=== PATIENT | female | born 1960 | race Caucasian/White ===

== ENCOUNTER 2020-11-06 08:32 | Outpatient (REF) | payer OTHER, SELFPAY ==
--- NOTE | 2020-11-06 08:36 | MM_ITS ---
EXAMINATION: MM SCREENING DIGITAL BREAST TOMOSYNTHESIS, BILATERAL CLINICAL INFORMATION: Screening. Asymptomatic. The lifetime risk of breast cancer based on the Tyrer-Cuzick Model is 8%. COMPARISON: Mammography: 11/01/2019, 08/31/2018, 08/09/2017 TECHNIQUE: Digital breast tomosynthesis is performed in both the craniocaudal and mediolateral oblique views along with computer-aided detection (CAD). Synthesized 2D images are generated from the tomosynthesis. FINDINGS: There are scattered areas of fibroglandular density (ACR BI-RADS breast composition Category b). There are no significant masses, abnormal calcifications, or other abnormalities. There are some benign coarse calcifications central left breast. The axilla and skin contours are unremarkable. MM/MM tomosynthesis screening BI IMPRESSION: No mammographic evidence of malignancy. ASSESSMENT: BI-RADS 2: Benign RECOMMENDATION: Routine annual mammography screening. This patient's information was entered into a reminder system with a target due date for their next mammogram.
== END 2020-11-06 08:33 | disposition home or self-care (01) ==
LOC: HO.MAMMO 08:32
PROVIDERS: Visit Provider Family Medicine
DX: Z12.31 Encounter for screening mammogram for malignant neoplasm of breast (principal)
CPT/HCPCS: 77063; 77067

== ENCOUNTER 2021-08-08 09:47 | Outpatient (REF) | payer OTHER, SELFPAY ==
[2021-08-08 11:06] LABS: Appearance Urine CLEAR; Color Urine YELLOW; Glucose Urine UA NEG (NEG); Leukocyte Esterase Urine NEG (NEG); Nitrite Urine NEG (NEG); UACC Culture Trigger NO; Urine Blood 2+ (NEG); Urine Ketones NEG (NEG); Urine Protein NEG (NEG-TRACE)
[2021-08-08 11:28] LABS: Squamous Epithelial Cell Urine 2+ /LPF; WBC Urine 0 /HPF (0-4)
== END 2021-08-08 09:48 | disposition home or self-care (01) ==
LOC: HO.LAB 09:47
PROVIDERS: PCP Family Medicine; Visit Provider Family Medicine
DX: R35.0 Frequency of micturition (principal)
CPT/HCPCS: 81001

== ENCOUNTER 2021-12-24 08:01 | Outpatient (REF) | payer OTHER, SELFPAY ==
--- NOTE | ~2021-12-24 | MM_ITS ---
EXAMINATION: MM SCREENING DIGITAL BREAST TOMOSYNTHESIS, BILATERAL CLINICAL INFORMATION: Screening. Asymptomatic. The lifetime risk of breast cancer based on the Tyrer-Cuzick Model is 7%. COMPARISON: Mammography: 11/06/2020, 11/01/2019, 08/31/2018 TECHNIQUE: Digital breast tomosynthesis is performed in both the craniocaudal and mediolateral oblique views along with computer-aided detection (CAD). Synthesized 2D images are generated from the tomosynthesis. Additional right MLO view is provided. FINDINGS: There are scattered areas of fibroglandular density (ACR BI-RADS breast composition Category b). There are no significant masses, abnormal calcifications, or other abnormalities. Parenchymal pattern is similar to prior studies. There is no developing density or architectural abnormality. The axilla and skin contours are unremarkable. No significant changes. MM/MM tomosynthesis screening BI IMPRESSION: No mammographic evidence of malignancy. ASSESSMENT: BI-RADS 1: Negative RECOMMENDATION: Routine annual mammography screening. This patient's information was entered into a reminder system with a target due date for their next mammogram.
== END 2021-12-24 08:02 | disposition home or self-care (01) ==
LOC: HO.MAMMO 08:01
PROVIDERS: Visit Provider Family Medicine
DX: Z12.31 Encounter for screening mammogram for malignant neoplasm of breast (principal)
CPT/HCPCS: 77063; 77067

== ENCOUNTER 2023-01-06 08:16 | Outpatient (REF) | payer OTHER, SELFPAY ==
--- NOTE | ~2023-01-06 | MM_ITS ---
EXAMINATION: MM SCREENING DIGITAL BREAST TOMOSYNTHESIS, BILATERAL CLINICAL INFORMATION: Screening. Asymptomatic. The lifetime risk of breast cancer based on the Tyrer-Cuzick Model is 6%. COMPARISON: Mammography: 12/24/2021, 11/06/2020, 11/01/2019 TECHNIQUE: Digital breast tomosynthesis is performed in both the craniocaudal and mediolateral oblique views along with computer-aided detection (CAD). Synthesized 2D images are generated from the tomosynthesis. Additional right MLO view is provided. FINDINGS: There are scattered areas of fibroglandular density (ACR BI-RADS breast composition Category b). There are no significant masses, abnormal calcifications, or other abnormalities. No architectural abnormality or developing density or significant change from prior studies. MM/MM tomosynthesis screening BI IMPRESSION: No mammographic evidence of malignancy. ASSESSMENT: BI-RADS 1: Negative RECOMMENDATION: Routine annual mammography screening. This patient's information was entered into a reminder system with a target due date for their next mammogram.
== END 2023-01-06 08:17 | disposition home or self-care (01) ==
LOC: HO.MAMMO 08:16
PROVIDERS: Visit Provider Family Medicine
DX: Z12.31 Encounter for screening mammogram for malignant neoplasm of breast (principal)
CPT/HCPCS: 77063; 77067

== ENCOUNTER 2024-01-12 08:47 | Outpatient (REF) | payer OTHER, SELFPAY | END 2024-01-12 08:48 | disposition home or self-care (01) | LOC: HO.MAMMO 08:47 | PROVIDERS: Visit Provider Family Medicine | DX: Z12.31 Encounter for screening mammogram for malignant neoplasm of breast (principal) | CPT/HCPCS: 77063; 77067 ==

== ENCOUNTER → 2024-01-12 09:00 | Outpatient (BNV) | payer OTHER, SELFPAY | PROVIDERS: Visit Provider Radiology Diagnostic Radiology | DX: Z12.31 Encounter for screening mammogram for malignant neoplasm of breast (principal) | CPT/HCPCS: 77063; 77067 ==

== ENCOUNTER 2024-08-23 07:11 | Outpatient (REF) | payer OTHER, SELFPAY ==
[2024-08-23 07:33] LABS: MANUAL DIFF FLAG NO
[2024-08-23 07:52] LABS: Basophils Absolute Auto 0.1 X10*3/uL (0.0-0.2); Basophils Percent Auto 1.1 % (0-2); Eosinophils Absolute Auto 0.2 X10*3/uL (0.0-0.4); Eosinophils Percent Auto 4.4 % (0-4); Hemoglobin 15.2 g/dl (12.0-16.0); Imm Gran Abs Auto 0.02 X10*3/uL (0.00-0.03); Imm Gran Pct Auto 0.4 % (0.0-0.4); Lymphocytes Absolute Auto 1.8 X10*3/uL (1.2-4.9); Lymphocytes Percent Auto 33.1 % (20-40); Mean Corpuscular HGB Conc 34.5 g/dl (31.0-35.0); Mean Corpuscular Hemoglobin 32.2 pg (27.0-33.0); Mean Corpuscular Volume 93.2 fL (80.0-98.0); Mean Platelet Volume 8.9 fL (9.4-12.3); Monocytes Absolute Auto 0.6 X10*3/uL (0.1-1.2); Neutrophils Absolute Auto 2.8 x10*3/uL (2.0-8.3); Platelet Count 276 X10*3/uL (160-400); Red Blood Count 4.72 X10*6/uL (4.20-5.50); White Blood Count 5.5 X10*3/uL (4.8-10.8)
[2024-08-23 08:15] LABS: Alanine Aminotransferase 23 U/L (0-31); Albumin Level 4.2 g/dL (3.5-5.0); Alkaline Phosphatase 60 U/L (39-117); Anion Gap 11 (12-20); Aspartate Amino Transferase 24 U/L (5-31); Bilirubin Total 0.5 mg/dL (0.0-1.0); Blood Urea Nitrogen 19 mg/dL (9-16); Calcium 9.4 mg/dL (8.4-10.2); Carbon Dioxide 28 mmol/L (22-29); Chloride 106 mmol/L (96-108); Cholesterol 197 mg/dL (<200); Estimated Glomerular Filt Rate > 60; Glucose Random 92 mg/dL (60-115); HDL Cholesterol 66 mg/dL (>40); LDL Cholesterol Calculated 118 mg/dL (<100); Potassium 4.5 mmol/L (3.3-5.1); Sodium 140 mmol/L (135-145); Total Protein 6.5 g/dL (6.5-8.0); Triglycerides 66 mg/dL (<150)
== END 2024-08-23 07:12 | disposition home or self-care (01) ==
LOC: HO.LAB 07:11
PROVIDERS: PCP Family Medicine; Visit Provider Family Medicine
DX: E78.00 Pure hypercholesterolemia, unspecified (principal)
CPT/HCPCS: 36415; 80053; 80061; 85025

== ENCOUNTER 2025-04-10 11:44 | Outpatient (REF) | payer OTHER, SELFPAY ==
--- OUTSIDE RECORDS SUMMARY | 2025-04-10 12:41 | XMS_ITS | Patient Health Record ---
[facility] Address [address] [place] [address] Care Team Providers Care Gear Hobber Set Up Operator Name Role Phone Alverto Kennedy MD Primary Care Provider Alton Daniels Unavailable [phone] Allergies No Known Allergies Reason For Referral No Information Medications Medication SIG (Take, Route, Frequency, Duration) Notes Start Date End Date Status Metoprolol Tartrate 50 MG 1 tablet with food Orally Twice a day for 30 day(s) Active Simvastatin 20 MG 1 tablet every eveni ng Orally Once a day for 30 day(s) Active Levothyroxine-Liothyronin e Active Lovastatin 20 MG 1 tablet with the evening meal Orally Once a day for 30 day(s) Active Cephalexin 500 MG 1 tablet Orally Twic e a day for 10 day(s) Not-Taking Immunizations Vaccine Route Administration Date Status Comme nts COVID-19 Moderna Vaccine Unknown 09/12/2021 Administered 1st 11/03/2020 2nd 12/01/2020 Social History Tobacco Use: Social History Observation Description Date Details (start date - stop date) Current Smoker NA - NA Tobacco Use/Smoking Question Answer Notes Are you a: current smoker Alcohol Screen Question Answer Notes Did you have a drink containing alcohol in the p ast year? Yes Points 0 Interpretation Negative Tobacco use other than smoking: Question Answer Notes Are you an other tobacco user? No Plan Of Treatment Pending Test Test Name Order Date [id number] Destruction, 1-14 03/13/2014 31068-Vxprljko Plate 10/13/2011 33626-Ntgxxtvz Plate 03/13/2014 15178-Bhlhbsdh Plate 05/05/2022 61535-Rhpgjkaq Plate 01/01/2024 86378-Lwuymvmg Plate Each Additional 79341-Kyajjmax Plate Each Additional 61130 I&D ABSCESS- SIMPLE,SINGLE 021 Insurance Providers Payer Name Payer Address Payer Phone Subscriber Number Group Number Insured Name Patient Relationship to Insured Coverage Start Date Coverage End Date [facility] [address] [place] [address] [id number] Lashonda Jaffe Self - patient is the insured Medical (General) History Medical History History ICD Code mumps measles chicken pox thyroid disorder stroke headaches/migraines broken bones Cholesterol Surgical History Surgery Date(Month/Year)
== END 2025-04-10 11:45 | disposition home or self-care (01) ==
LOC: HO.MAMMO 11:44
PROVIDERS: PCP Family Medicine; Visit Provider Family Medicine
DX: Z12.31 Encounter for screening mammogram for malignant neoplasm of breast (principal)
CPT/HCPCS: 77063; 77067

== ENCOUNTER → 2025-04-10 12:00 | Outpatient (BNV) | payer OTHER, SELFPAY | PROVIDERS: PCP Family Medicine; Visit Provider Internal Medicine | DX: Z12.31 Encounter for screening mammogram for malignant neoplasm of breast (principal) | CPT/HCPCS: 77063; 77067 ==

== ENCOUNTER 2025-07-06 02:10 | Inpatient (IN) | payer OTHER, SELFPAY ==
[2025-07-06] VITALS (21 sets, daily range): BP systolic 111–159; BP diastolic 51–75; PULSE 56–99; RESP 14–25; TEMP 36.2–37.4; O2SAT 91–100; BMI 23.3
--- NOTE | ~2025-07-06 | CT_ITS ---
CLINICAL HISTORY: RLQ pain tenderness; n v CT Abdomen and Pelvis W Contrast COMPARISON: None provided FINDINGS: Normal liver. Normal spleen. Bilateral renal cysts and subcentimeter hypodensities too small to accurately characterize. No hydronephrosis. Normal adrenal glands. Normal pancreas. No visible cholelithiasis. No biliary dilation. No evidence of bowel obstruction. Mild thickening of the metcalf of the descending colon. No pneumatosis. Dilated appendix measuring up to 1.3 cm in diameter, with adjacent fat stranding. Appendicolith at the base of the appendix. Mild diffuse bladder wall thickening. Unremarkable uterus. No ascites. No pneumoperitoneum. No lymphadenopathy. No acute fracture. No abdominal aortic aneurysm. Atherosclerosis. IMPRESSION: Findings consistent with acute appendicitis. Colonic wall thickening, which could be due to underdistention or colitis. Possible cystitis. Nonemergent/incidental findings above. This document has been electronically signed by: Srikanth Solomon MD on 07/06/2025 04:36:52
--- NOTE | 2025-07-06 02:23 | ED.ABDPAIN ---
HPI - Abdominal Pain General Chief Complaint: Abdominal Pain Stated Complaint: right abd pain Time Seen by Provider: 07/06/25 02:20 Source: patient Mode of arrival: ambulatory Limitations: no limitations History of Present Illness ED Provider: Satish THOMPSON HPI narrative: The patient is a 65-year-old female presenting to the ED for evaluation of abdominal pain with nausea and vomiting. Patient reports symptoms began Sunday with epigastric discomfort and bloating. Yesterday she developed recurrent episodes of nonbloody vomiting, reporting approximately 6-7 episodes of vomiting. The patient denies associated diarrhea, dysuria, hematuria, hematochezia, melena, chest pain, shortness of breath, cough, or recent sick contacts. The patient reports after vomiting throughout the day she then developed right lower quadrant abdominal pain with tenderness to palpation, prompting ED evaluation. The patient reports she did make her own pizza on Sunday, significant other was present with the patient and states he ate the same meal, developed some mild bloating but no vomiting or other similar symptoms to the patient. The patient denies any surgical abdominal history. Related Data Allergies Allergy/AdvReac Type Severity Reaction Status Date / Time No Known Allergies Allergy Unverified 07/06/25 02:20 Review of Systems Review of Systems Yes all other systems are reviewed and are negative PMFSH Social History Social History Alcohol intake: current Alcohol intake frequency: a few times a week Alcohol type: wine Smoked in Last 30 Days: Yes Use of substances other than those prescribed or required for medical reasons: No Advance Directives: No Advance Directives Information Provided: No Physical Exam ED Vital Signs: Vital Signs - 24 hr 07/06/25 02:16 Temperature 98.3 F Pulse Rate 79 Respiratory Rate 20 Blood Pressure 157/75 H Pulse Oximetry 95 Oxygen Delivery Method Room Air BMI result Body Mass Index 23.3 CONSTITUTIONAL: The patient appears non-toxic, well nourished and in no acute distress. Vital signs as documented. HEAD: Atraumatic, normocephalic. EYES: EOMs grossly intact, pupils equal, conjunctiva clear, no exudate. ENT: Nares patent, no discharge. Airway patent, no audible stridor, visible mucosa is pink and moist without noted lesions. NECK: Trachea is midline, no obvious masses or gross abnormalities. CHEST: Symmetric movement, normal appearance. LUNGS: LS present and CTAB, no w/r/r. Non-labored work of breathing. CARDIAC: Regular Rhythm, S1/S2 appreciated, no murmurs, rubs or gallops. ABDOMEN: Abdomen soft x4 quadrants, positive tenderness to palpation of the right lower quadrant, negative rebound, no palpable masses or organomegaly. : Deferred. EXTREMITIES: Normal tone, moves all extremities spontaneously without reported pain. No obvious acute injury or deformity noted. NEURO: Alert and oriented x3, CN II-XII appear grossly intact. Cerebellar Functioning grossly intact. No obvious sensory or motor deficits. Speech clear and appropriate. PSYCH: normal affect, appropriate eye contact, fluid speech, with appropriate response to questioning. No reported suicidality or homicidality. SKIN: Warm, dry, color appropriate, normal turgor. No rashes noted. Medical Decision Making Medical Decision Making MDM Narrative: 3:37 AM 07/06/2025 (Ryan THOMPSON): The patient is a 65-year-old female presenting to the ED for evaluation of epigastric abdominal pain with subsequent nausea and vomiting followed by right lower quadrant abdominal pain. The patient has no surgical abdominal history, presents to the ED without active dry heaving, abdominal exam shows right lower quadrant tenderness without rebound. The patient arrives afebrile, normotensive, without tachypnea or tachycardia. Patient's laboratory evaluation shows white count of 16.1, no evidence of anemia, significant electrolyte abnormality, or JAYY. Patient's LFTs show T bili mildly elevated at 1.1, otherwise are unremarkable. Patient's urinalysis appears contaminated, patient denies any dysuria or other urinary symptoms. The patient will be evaluated with CT scan and treated with Zofran for nausea. 5:00 AM 07/06/2025 (Dr. Litzy Jenkins, D.O.) CT shows evidence appendicitis with an appendicolith. She also has some evidence of cystitis as evidenced by her urinalysis and CT findings. We will treat with Rocephin. Case discussed with surgeon on-call, Dr. Bautista who will see her today. Patient understands and agrees with plan. Admitted in guarded condition. Admission/Observation Consideration of admission/observation: Escalation of care including admission/observation considered Consult Healthcare Provider Management of the patient was discussed with: Well Reactivator Operator (general surgery) Lab Data [facility] Lab Attestation statement: I reviewed the patient's lab results. 07/06/25 02:35 07/06/25 02:55 Labs: Lab Results 07/06/25 07/06/25 07/06/25 Range/Units 02:35 02:55 02:57 WBC 16.1 H (4.8-10.8) X10*3/uL RBC 4.87 (4.20-5.50) X10*6/uL Hgb 15.5 (12.0-16.0) g/dl Hct 43.2 (37.0-47.0) % MCV 88.7 (80.0-98.0) fL MCH 31.8 (27.0-33.0) pg MCHC 35.9 H (31.0-35.0) g/dl RDW 12.4 (11.0-16.0) % Plt Count 299 (160-400) X10*3/uL MPV 8.8 L (9.4-12.3) fL Immature Gran % (Auto) 0.4 (0.0-0.4) % Neut % (Auto) 80.9 H (45-73) % Lymph % (Auto) 8.7 L (20-40) % Stephens % (Auto) 9.8 (2-11) % Eos % (Auto) 0.0 (0-4) % Baso % (Auto) 0.2 (0-2) % Lymph # (Auto) 1.4 (1.2-4.9) X10*3/uL Stephens # (Auto) 1.6 H (0.1-1.2) X10*3/uL Eos # (Auto) 0.0 (0.0-0.4) X10*3/uL Baso # (Auto) 0.0 (0.0-0.2) X10*3/uL Abs Immat Gran (auto) 0.07 H (0.00-0.03) X10*3/uL Absolute Neuts (auto) 13.0 H (2.0-8.3) x10*3/uL Absolute Nucleated RBC 0.000 (0.0-0.012) X10*3/uL Nucleated RBC % (auto) 0.0 (0.0-0.2) /100WBC Smear Tech's Comments VERIFIED Sodium 141 (135-145) mmol/L Potassium 3.4 D (3.3-5.1) mmol/L Chloride 109 H (96-108) mmol/L Carbon Dioxide 21 L (22-29) mmol/L Anion Gap 14 (12-20) BUN 13 (9-16) mg/dL Creatinine 0.66 (0.5-1.4) mg/dL Estim Creat Clear Calc 66.3 Estimated GFR > 60 Random Glucose 125 H (60-115) mg/dL Calcium 8.6 D (8.4-10.2) mg/dL Total Bilirubin 1.1 H (0.0-1.0) mg/dL AST 19 (5-31) U/L ALT 15 (0-31) U/L Alkaline Phosphatase 66 (39-117) U/L Total Protein 6.4 L (6.5-8.0) g/dL Albumin 4.1 (3.5-5.0) g/dL Lipase 10 (8-78) U/L Urine Color Dark Yellow Urine Appearance Cloudy Urine pH 5.5 (5.0-9.0) Ur Specific Scio 1.025 (1.005-1.025) Urine Protein 100 (2+) H (Neg-Trace) mg/dL Urine Glucose (UA) Negative (Negative) mg/dL Urine Ketones 80 (Negative) mg/dL Urine Blood Large (3+) H (Negative) Urine Nitrite Negative (Negative) Ur Leukocyte Esterase Small (1+) H (Negative) Urine RBC >20 H (0-2) /HPF Urine WBC 21-50 H (0-5) /HPF Ur Squamous Epith Cells >20 (0-2) /HPF Urine Bacteria 2+ (None Seen) Hyaline Casts >20 (0-2) /LPF Radiology Impression Discussion of test interpretation with radiology: I have reviewed the radiologist's reading. (CT abd/pelvis) Radiologist Impression: FINDINGS: Normal liver. Normal spleen. Bilateral renal cysts and subcentimeter hypodensities too small to accurately characterize. No hydronephrosis. Normal adrenal glands. Normal pancreas. No visible cholelithiasis. No biliary dilation. No evidence of bowel obstruction. Mild thickening of the metcalf of the descending colon. No pneumatosis. Dilated appendix measuring up to 1.3 cm in diameter, with adjacent fat stranding. Appendicolith at the base of the appendix. Mild diffuse bladder wall thickening. Unremarkable uterus. No ascites. No pneumoperitoneum. No lymphadenopathy. No acute fracture. No abdominal aortic aneurysm. Atherosclerosis. IMPRESSION: Findings consistent with acute appendicitis. Colonic wall thickening, which could be due to underdistention or colitis. Possible cystitis. Nonemergent/incidental findings above. Prescription Management I considered prescription management with: Pain Medication and Antibiotic Medications Administered Discontinued Medications Generic Name Dose Route Start Last Admin Trade Name Freq PRN Reason Stop Dose Admin Sodium Chloride 1,000 mls @ 999 mls/hr 07/06/25 02:30 07/06/25 03:48 Ns IV 07/06/25 03:30 Infused .Q1H1M NEO Infusion Iohexol 85 ml 07/06/25 03:29 07/06/25 03:29 Iohexol 350 Mg/Ml 100 Ml Infus..Btl IV 07/06/25 03:30 85 ml ONCE ONE Administration Ondansetron HCl 4 mg 07/06/25 03:37 07/06/25 03:41 Ondansetron Hcl 4 Mg/2 Ml Vial IVPUSH 07/06/25 03:38 4 mg ONCE ONE Administration Discharge Plan Discharge Clinical Impression: Acute appendicitis, Acute UTI Patient Disposition: Admitted As Inpatient Print Language: Turkish
--- OUTSIDE RECORDS SUMMARY | 2025-07-06 02:38 | XMS_ITS | Patient Health Record ---
Author Organization [facility] Address [address] [place] [address] Care Team Providers Care Popcorn Attendant Name Role Phone Alverto Kennedy MD Primary Care Provider Alton Daniels Unavailable [phone] Allergies No Known Allergies Reason For Referral No Information Medications Medication SIG (Take, Route, Frequency, Duration) Notes Start Date End Date Status Lovastatin 20 MG 1 tablet with the evening meal Orally Once a day; Duration: 30 day(s) Active Levothyroxine-Liothyronin e Active Cephalexin 500 MG 1 capsule Orally Thr ee times a day; Duration: 10 days Active Simvastatin 20 MG 1 tablet every eveni ng Orally Once a day; Duration: 30 day(s) Not-Taking Metoprolol Tartrate 50 MG 1 tablet with food Orally Twice a day; Duration: 30 day(s) Active Immunizations Vaccine Route Administration Date Status Comme nts Influenza Unknown 07/07/2024 Administered COVID-19 Moderna Vaccine Unknown 09/12/2021 Administered 1st 11/03/2020 2nd 12/01/2020 Social History Tobacco Use: Social History Observation Description Date Details (start date - stop date) Current Smoker 04/28/1985 - NA Tobacco use other than smoking: Question Answer Notes Are you an other tobacco user? No Tobacco Control (Standard) Question Answer Notes Tobacco use: Current smoker When did you start smoking? 04/28/1985 How often do you smoke cigarettes? Every day How many cigarettes a day do you smoke? 6-10 How soon after you wake up d o you smoke your first cigarette? 31-60 minutes Are you interested in quitting? Not ready to kimmie t Additional Findings: Tobacco user Light cigarett e smoker (1-9 cigs/day) AUDIT-C (Standard) Question Answer Notes Did you have a drink contain ing alcohol in the past year? Yes How often did you have a dri nk containing alcohol in the past year? Daily or almost daily (4 points) How many drinks did you have on a typical day when you were drinking in the past year? 1 or 2 drinks (0 point) How often did you have six o r more drinks on one occasion in the past year? Never (0 point) Points 4 Interpretation Positive Problems Problem Type SNOMED Code ICD Code Onset Dates Problem Status W/U Status Risk Notes Problem Ingrowing nail (678404760) Ingrown nail (L60.0) Active confirmed Vital Signs Height 5ft 3in in 05/14/2025 Weight 136 lbs 05/14/2025 BMI 24.09 kg/m2 05/14/2025 Procedures Procedure Date Ordered Date Performed Result Body Sit e 16487-Cqsnksms Plate 05/14/2025 N/A Encounters Encounter Location Date Provider Diagnosis [facility] [address] [address] 05/14/2025 Alton Lynch Ingrown nail L60.0 ; Pain in left toe(s) M79.675 and Cellulitis of toe of left foot L03.032 Assessments Encounter Date Diagnosis (ICD Code) Assessment Notes Treatment Notes Treatment Clinical Notes Section Notes 05/14/2025 Pain in left toe(s) (ICD-10 - M79.675) 05/14/2025 Ingrown nail (ICD-10 - L60.0) 05/14/2025 Cellulitis of toe of left foot (ICD-10 - L03.032) Plan Of Treatment Pending Test Test Name Order Date 22787-Cqrv Destruction, 1-14 03/13/2014 45247-Uyfzmdey Plate 10/13/2011 94057-Xrjzqvxy Plate 03/13/2014 57989-Jehcnmon Plate 05/05/2022 38468-Llgojwru Plate 01/01/2024 50572-Nzxrqsko Plate 05/14/2025 90366-Hssdervj Plate Each Additional 25611-Ndfghhdq Plate Each Additional 25399 I&D ABSCESS- SIMPLE,SINGLE 021 Next Appt Details Provider Name:Alton Lynch , 05/13/2026 08:30:00 AM, [address], [address], [place], [address], Insurance Providers Payer Name Payer Address Payer Phone Subscriber Number Group Number Insured Name Patient Relationship to Insured Coverage Start Date Coverage End Date [facility] [address] [place] [address] [id number] Lashonda Jaffe Self - patient is the insured Medical (General) History Medical History History ICD Code mumps measles chicken pox thyroid disorder stroke headaches/migraines broken bones Cholesterol Surgical History Surgery Date(Month/Year)
--- OUTSIDE RECORDS SUMMARY | 2025-07-06 02:38 | XMS_ITS | Clinical Summary ---
Author Organization [facility] Address [address] [place] [phone] Phone Care Team Providers Care Ink Jet Operator Name Role Phone Pcp, Unknown Primary Care Provider Unavailabl e Allergies No known active allergies Medications levothyroxine (SYNTHROID, LEVOTHROID) 112 MCG tablet TK 1 T PO D 3 05/29/2019 Active lovastatin (MEVACOR) 20 MG tablet TK 1 T PO D 3 06/08/2019 Active metoprolol tartrate (LOPRESSOR) 50 MG tablet TK 1 T PO BID TARTRATE 5 06/04/2019 Active Family History Medical History Relation Comments Heart attack Father Crohn's disease Mother Relation Status Comments Father Mother Social History Tobacco Use Types Packs/Day Years Used Date Smoking Tobacco: Every Day Cigarettes Smokeless Tobacco: Never Alcohol Use Standard Drinks/Week Comments Yes 1 (1 standard drink = 0.6 oz pur e alcohol) Education Answer Date Recorded Are you interested in more education? Not on gaston e 03/12/2023 Are you concerned about learning? Not on file 03/12/2023 No 03/12/2023 No 03/12/2023 Digital Access Answer Date Recorded No 03/25/2023 No 03/25/2023 No 03/25/2023 Reliable internet access at home? Not on file 03/25/2023 Device with a working camera? Not on file Comments No Sex and Gender Information Value Date Recorded Sex Assigned at Not on file Legal Sex Female 6:59 PM EST Gender Identity Not on file Sexual Orientation Not on file Last Filed Vital Signs Vital Sign Reading Time Taken Comments Blood Pressure 138/82 06/19/2019 10:06 AM EDT Pulse - - Temperature - - Respiratory Rate - - Oxygen Saturation - - Inhaled Oxygen Concentration - - Weight 58.9 kg (129 lb 12.8 oz) 019 10:06 AM EDT Height 159 cm (5' 2.6 ) 06/19/2019 10:0 6 AM EDT Body Mass Index 23.29 06/19/2019 10:06 AM EDT Plan of Treatment Health Maintenance Due Date Last Done Comments Adult Td,Tdap Booster 1959 LIPID PANEL 1959 TSH LEVEL 1959 DEPRESSION SCREENING 1971 SMOKING Hx and SMOKELESS TOBACCO SCREENING 1972 HEPATITIS C SCREENING 1977 PNEUMOCOCCAL VACCINES (50+ years) (1 of 2 - PCV) 1978 MAMMOGRAM 1999 COLOGUARD 2004 COLONOSCOPY 2004 COLORECTAL CANCER SCREENING 2004 FIT TEST 2004 FOBT 2004 SIGMOIDOSCOPY 2004 VIRTUAL COLONOSCOPY 2004 ZOSTER VACCINES (1 of 2) 2009 OSTEOPOROSIS SCREENING INITI AL (ONE-TIME) 2024 COVID-19 VACCINE (3 - 2023-2 5 season) 2024 12/01/2020, 11/03/2020 INFLUENZA VACCINE (#1) 2025 09/29/2017 RSV VACCINE (1 - 1-dose 75+ series) 2034 HEPATITIS A VACCINES Aged Out No long er eligible based on patient's age to complete this topic HIB VACCINES Aged Out No longer eligi ble based on patient's age to complete this topic MENINGOCOCCAL VACCINES (ACWY) Aged Out No longer eligible based on patient's age to complete this topic MENINGOCOCCAL VACCINES (B) Aged Out N o longer eligible based on patient's age to complete this topic Medical Devices Not on file Insurance HMO Member Subscriber Plan / Payer ( fective 2018-) Name:Lashonda Jaffe Relation to Subscriber:Self Name:Lashonda Jaffe Payer ID:Not on file Type:HMO Address: [place] [id number] O Member Subscriber Plan / Payer (Ef fective 2018-Present) Name:Lashonda Jaffe Relation to Subscriber:Self Name:Lashonda Jaffe Payer ID:Not on file Type:HMO Address: [place] [id number] O Care Teams Ink Jet Operator Relationship Specialty Start Date End Date Pcp, Unknown PCP - General 05/30/19 Additional Source Comments The information contained in this document represents components of the legal health record. It is not the complete legal health record.[facility]
[2025-07-06 02:43] LABS: Hematocrit 43.2 % (37.0-47.0); Hemoglobin 15.5 g/dl (12.0-16.0); Imm Gran Abs Auto 0.07 X10*3/uL (0.00-0.03); Imm Gran Pct Auto 0.4 % (0.0-0.4); Lymphocytes Absolute Auto 1.4 X10*3/uL (1.2-4.9); Mean Corpuscular HGB Conc 35.9 g/dl (31.0-35.0); Mean Corpuscular Hemoglobin 31.8 pg (27.0-33.0); Mean Corpuscular Volume 88.7 fL (80.0-98.0); NRBC Abs Auto 0.000 X10*3/uL (0.0-0.012); NRBC Pct Auto 0.0 /100WBC (0.0-0.2); Platelet Count 299 X10*3/uL (160-400); Red Blood Count 4.87 X10*6/uL (4.20-5.50); SCAN SMEAR FLAG 1; White Blood Count 16.1 X10*3/uL (4.8-10.8)
[2025-07-06 02:44] LABS: MANUAL DIFF FLAG SCAN
[2025-07-06 03:06] LABS: Appearance Urine Cloudy; Glucose Urine UA Negative (Negative); PH 5.5 (5.0-9.0); Specific Gravity - Urine 1.025 (1.005-1.025); UMIC TRIGGER UACC YES
[2025-07-06 03:19] LABS: Alanine Aminotransferase 15 U/L (0-31); Albumin Level 4.1 g/dL (3.5-5.0); Alkaline Phosphatase 66 U/L (39-117); Anion Gap 14 (12-20); Aspartate Amino Transferase 19 U/L (5-31); Blood Urea Nitrogen 13 mg/dL (9-16); Calcium 8.6 mg/dL (8.4-10.2); Carbon Dioxide 21 mmol/L (22-29); Chloride 109 mmol/L (96-108); Creatinine Clr Calc Pharmacy 66.3; Estimated Glomerular Filt Rate > 60; Lipase 10 U/L (8-78); Potassium 3.4 mmol/L (3.3-5.1); Sodium 141 mmol/L (135-145); Total Protein 6.4 g/dL (6.5-8.0)
[2025-07-06 03:21] LABS: UACC Culture Trigger YES
[2025-07-06] MEDS: iohexoL 350 MG/ML 100 ML INFUS..BTL 85 ML IV (03:29)
--- NOTE | 2025-07-06 05:26 | PC.NURSE ---
report given to short stay nurse at this time
[2025-07-06] MEDS: Dextrose 5 % and Lactated Ring 1,000 ML 125 ML IVCONT ×2 (05:54→16:35)
--- NOTE | 2025-07-06 07:31 | P.HPGS_ITS ---
History of Present Illness History of Present Illness Date of Service: 07/06/25 <Rocky Dutta PA-C - Last Filed: 07/06/25 07:59> 07/06/25 <Don Bautista MD - Last Filed: 07/06/25 08:06> Chief complaint: Acute appendicitis <Rocky Dutta PA-C - Last Filed: 07/06/25 07:59> Narrative: Lashonda Jaffe is a 65 year old female who began having vague abdominal pain in the center of the abdomen that began on sunday. This gradually increased in intensity on sunday, became located at the right lower quadrant and she began having nausea and vomiting. Became difficult for her to even walk straight due to pain. She has been unable to eat since sunday morning. She has not travelled or had known sick contacts. Denies fevers or chills at home. Intitally presenting with leukocytosis 16.1, CT showing concern for acute appendicitis, dilation of the appendix up to 1.3 cm, appendicolith at the base of the appendix, surrounding inflammatory changes. She was started on IVF, zosyn in the ED. Pain has not improved much since she has been at [facility], still located in [facility]. continued nausea, decreased appetite. Denies allergies. Daily medications include levothyroxine, metoprolol, lovastatin. Denies surgical history. <Rocky Dutta PA-C - Last Filed: 07/06/25 07:59> [facility] Social History Social History: Social History Alcohol intake: current Alcohol intake frequency: a few times a week Alcohol type: wine Smoked in Last 30 Days: Yes Use of substances other than those prescribed or required for medical reasons: No Advance Directives: No Advance Directives Information Provided: No <Rocky Dutta PA-C - Last Filed: 07/06/25 07:59> Meds Allergies/Adverse reactions: Allergies Allergy/AdvReac Type Severity Reaction Status Date / Time No Known Allergies Allergy Unverified 07/06/25 02:20 <Rocky Dutta PA-C - Last Filed: 07/06/25 07:59> Active Medications: Current Medications Calcium Carbonate (Calcium Carbonate 750 Mg Tab.Chew) 750 mg PO Q4H PRN PRN Reason: Heartburn Hydromorphone HCl (Hydromorphone Hcl 0.5 Mg/0.5 Ml Syringe) 0.5 mg IVPUSH Q3H PRN; Protocol PRN Reason: Pain, Severe (Pain Scale 7-10) Last Admin: 07/06/25 07:30 Dose: 0.5 mg Acetaminophen (Ofirmev) 1,000 mg in 100 mls @ 400 mls/hr IV Q6H PRN PRN Reason: Pain, Mild (Pain Scale 1-3) Dextrose/Lactated Ringer's (D5lr) 1,000 mls @ 125 mls/hr IVCONT .Q8H [facility] Last Admin: 07/06/25 05:54 Dose: 125 mls/hr Piperacillin Sod/Tazobactam (Sod 3.375 gm/ Sodium Chloride) 50 mls @ 100 mls/hr IV Q6H [facility] Last Infusion: 07/06/25 07:17 Dose: Infused Magnesium Hydroxide (Milk Of Magnesia 30 Ml Oral.Susp) 30 ml PO DAILY PRN PRN Reason: Constipation Melatonin (Melatonin 3 Mg Tablet) 6 mg PO BEDTIME PRN PRN Reason: Insomnia Ondansetron HCl (Ondansetron Hcl 4 Mg/2 Ml Vial) 4 mg IVPUSH QID PRN PRN Reason: Nausea Oxycodone HCl (Oxycodone Hcl Immed Release 5 Mg Tablet) 5 mg PO Q6H PRN PRN Reason: Pain, Moderate(Pain Scale 4-6) Sodium Chloride (0.9 % Sodium Chloride Flush 3 Ml Syringe) 3 ml IVFLUSH QSHIFT [facility] <Rocky Dutta PA-C - Last Filed: 07/06/25 07:59> Home medications: Home Medications ?Medication ?Instructions ?Recorded ?Confirmed ?Last Taken ?Type levothyroxine 100 mcg tablet 100 mcg PO DAILY@0600 06/22 Unknown History lovastatin 20 mg tablet 20 mg PO DAILY 07/06/25 Unk nown History metoprolol tartrate 50 mg tablet 50 mg PO BID 07/06/25 Unknown History <Rocky Dutta PA-C - Last Filed: 07/06/25 07:59> Physical Exam Vital Signs: Vital Signs: Last Vital Signs Temp 98.4 F 07/06/25 04:00 Pulse 83 07/06/25 04:00 Resp 16 07/06/25 04:00 BP 153/69 H 07/06/25 04:00 Pulse Ox 94 07/06/25 04:00 O2 Del Method Room Air 07/06/25 04:00 BMI result Body Mass Index 23.3 <Rocky Dutta PA-C [place] Last Filed: 07/06/25 07:59> Const: General: no acute distress; No comfortable <ARNOLDO Mills Last Filed: 07/06/25 07:59> Orientation/consciousness: patient oriented x3 <ARNOLDO Mills Last Filed: 07/06/25 07:59> Resp: Effort & Inspection: normal respiratory effort and able to speak in complete sentences <ARNOLDO Mills Last Filed: 07/06/25 07:59> GI: Inspection: Yes normal to inspection and No distended <ARNOLDO Mills Last Filed: 07/06/25 07:59> Palpation (GI): Soft to palpation and Tenderness to palpation present (GI) in the RLQ and at McBurney's point; with no rebound tenderness and Rovsing's sign negative <Rocky Dutta PA-C Last Filed: 07/06/25 07:59> Neuro: General: patient oriented x3 <ARNOLDO Mills Last Filed: 07/06/25 07:59> Results Results Labs: Short CBC 07/06/25 Range/Units 02:35 WBC 16.1 H (4.8-10.8) X10*3/uL Hgb 15.5 (12.0-16.0) g/dl Hct 43.2 (37.0-47.0) % Plt Count 299 (160-400) X10*3/uL BMP 07/06/25 02:55 Sodium 141 Potassium 3.4 D Chloride 109 H Carbon Dioxide 21 L BUN 13 Creatinine 0.66 Calcium 8.6 D Liver Function 07/06/25 Range/Units 02:55 Total Bilirubin 1.1 H (0.0-1.0) mg/dL AST 19 (5-31) U/L ALT 15 (0-31) U/L Alkaline Phosphatase 66 (39-117) U/L Albumin 4.1 (3.5-5.0) g/dL Urine 07/06/25 Range/Units 02:57 Urine Color Dark Yellow Urine Appearance Cloudy Urine pH 5.5 (5.0-9.0) Ur Specific [place] 1.025 (1.005-1.025) Urine Protein 100 (2+) H (Neg-Trace) mg/dL Urine Glucose (UA) Negative (Negative) mg/dL <Rocky Dutta PA-C - Last Filed: 07/06/25 07:59> Assessment and Plan (1) Acute appendicitis: Qualifiers: Acute appendicitis type: with localized peritonitis Appendicitis abscess presence: without abscess Appendicitis gangrene presence: without gangrene Appendicitis perforation presence: without perforation Qualified Code(s): K35.30 - Acute appendicitis with localized peritonitis, without perforation or gangrene <Rocky Dutta PA-C - Last Filed: 07/06/25 07:59> Status: Acute <Rocky Dutta PA-C - Last Filed: 07/06/25 07:59> 65 year old female with a history of hypothyroid, HLD who presented to the ED wit sigala 2 day history of RLQ abdominal pain with associated nausea and vomiting, decreased appetite. Pain intially was vague generalized pain that progressed in intensity, became located in the RLQ. In the ED she had leukocytosis 16.1, CT showing dilated appendix with appendicolith in the base of the appendix, surrounding inflammatory changes consistent with acute appendicitis. On exam she is very tender in the RLQ, negative rosvings, rebound. Currently afebrile. Discussed plan with patient, she would like to proceed with surgical intervention, laparoscopic appendecotmy possible open. She understands risks including but not limited to, bleeding, infection, injury to surrouding organs. She has been added to the OR schedule for later today. She has been NPO. Started on empiric zosyn, fluids in ED. lap appendectomy pos open this afternoon IV zosyn, IVF pain control <Rocky Dutta PA-C - Last Filed: 07/06/25 07:59> 65 year old female with a history of hypothyroid, HLD who presented to the ED wit sigala 2 day history of RLQ abdominal pain with associated nausea and vomiting, decreased appetite. Pain intially was vague generalized pain that progressed in intensity, became located in the RLQ. In the ED she had leukocytosis 16.1, CT showing dilated appendix with appendicolith in the base of the appendix, surrounding inflammatory changes consistent with acute appendicitis. On exam she is very tender in the RLQ, negative rosvings, rebound. Currently afebrile. Discussed plan with patient, she would like to proceed with surgical intervention, laparoscopic appendecotmy possible open. She understands risks including but not limited to, bleeding, infection, injury to surrouding organs. She has been added to the OR schedule for later today. She has been NPO. Started on empiric zosyn, fluids in ED. lap appendectomy pos open this afternoon IV zosyn, IVF pain control Agree with the above assessment and plan. 65-year-old female patient with initially epigastric abdominal pain radiating down to the right lower quadrant, now presenting with severe right lower quadrant abdominal pain, anorexia, nausea, vomiting, and pain with motion. Workup in the emergency department revealed an elevated WBC and a CT with a dilated appendix with surrounding inflammation and a fecalith at the base of the appendix. Examination does reveal tenderness in the right lower quadrant over McBurney's point. Findings are consistent with acute appendicitis. I recommended a laparoscopic or possible open appendectomy. After discussion of the procedure, risks, and alternatives, she consents to the procedure. She has been added onto the operative schedule for today. Continue IV antibiotics. <Don Bautista MD - L ast Filed: 07/06/25 08:06> Quality Stroke Does the patient have a stroke diagnosis?: No <Don Bautista MD - Last Filed: 07/06/25 08:06> VTE Prior VTE?: No <Don Bautista MD - Last Filed: 07/06/25 08:06> VTE Risk Level:: Surgical - moderate <Rocky Dutta PA-C - Last Filed: 07/06/25 07:59> VTE Device Contraindication: N/A - Device Ordered <Rocky Dutta PA-C - Last Filed: 07/06/25 07:59> VTE Drug Contraindication: Treatment Not Indicated <Rocky Dutta PA-C - Last Filed: 07/06/25 07:59> Procedures Date of Service Date of Service: 07/06/25 <Rocky Dutta PA-C - Last Filed: 07/06/25 07:59> 07/06/25 <Don Bautista MD - Last Filed: 07/06/25 08:06>
--- NOTE | 2025-07-06 07:33 | PC.NURSE ---
Pt c/o increasing RLQ pain; pt medicated per orders and hot pack placed to RLQ for comfort; surgery at bedside to speak with pt; IVF's infusing per orders; pt remains NPO
--- NOTE | 2025-07-06 08:09 | PHA.MEDREC ---
Addendum entered by Bre Snowden RPh 07/06/25 08:13: reviewed by [facility]. Original Note: Pharmacy Consult ? Medication Reconciliation Pharmacy has completed the medication reconciliation. Spoke with pt and she was a bit drowsy (pt received pain meds not too long before interaction) but able to confirm her prescription medications (dosages and how she takes them). Pt unable to name off OTC meds at this time.
--- NOTE | 2025-07-06 08:50 | HO.ANESPROP2 ---
Documented by User: Mary Torres NP 07/06/25 08:57 HPI - Anesthesia Eval Consult details Narrative: 65 yr old female for lap appy No recent illness. No CP/SOB with walking dog daily. No prior surgeries PMFSH Active Problems Active Problems: All Active Problems Acute UTI (Acute) Acute appendicitis (Acute) Social History Social History Alcohol intake: current Alcohol intake frequency: a few times a week Alcohol type: wine Smoked in Last 30 Days: Yes Use of substances other than those prescribed or required for medical reasons: No Advance Directives: No Advance Directives Information Provided: No Meds Allergies Allergy/AdvReac Type Severity Reaction Status Date / Time No Known Allergies Allergy Unverified 07/06/25 02:20 Active Medications: Current Medications Calcium Carbonate (Calcium Carbonate 750 Mg Tab.Chew) 750 mg PO Q4H PRN PRN Reason: Heartburn Hydromorphone HCl (Hydromorphone Hcl 0.5 Mg/0.5 Ml Syringe) 0.5 mg IVPUSH Q3H PRN; Protocol PRN Reason: Pain, Severe (Pain Scale 7-10) Last Admin: 07/06/25 07:30 Dose: 0.5 mg Acetaminophen (Ofirmev) 1,000 mg in 100 mls @ 400 mls/hr IV Q6H PRN PRN Reason: Pain, Mild (Pain Scale 1-3) Dextrose/Lactated Ringer's (D5lr) 1,000 mls @ 125 mls/hr IVCONT .Q8H [facility] Last Admin: 07/06/25 05:54 Dose: 125 mls/hr Piperacillin Sod/Tazobactam (Sod 3.375 gm/ Sodium Chloride) 50 mls @ 100 mls/hr IV Q6H [facility] Last Infusion: 07/06/25 07:17 Dose: Infused Magnesium Hydroxide (Milk Of Magnesia 30 Ml Oral.Susp) 30 ml PO DAILY PRN PRN Reason: Constipation Melatonin (Melatonin 3 Mg Tablet) 6 mg PO BEDTIME PRN PRN Reason: Insomnia Ondansetron HCl (Ondansetron Hcl 4 Mg/2 Ml Vial) 4 mg IVPUSH QID PRN PRN Reason: Nausea Oxycodone HCl (Oxycodone Hcl Immed Release 5 Mg Tablet) 5 mg PO Q6H PRN PRN Reason: Pain, Moderate(Pain Scale 4-6) Sodium Chloride (0.9 % Sodium Chloride Flush 3 Ml Syringe) 3 ml IVFLUSH QSHIFT [facility] Home Medications ?Medication ?Instructions ?Recorded ?Confirmed ?Last Taken ?Type levothyroxine 100 mcg tablet 100 mcg PO DAILY@0600 07/06/25 07/06/25 07/05/25 History lovastatin 20 mg tablet 20 mg PO DAILY 07/06/25 07/06/25 07/05/25 History metoprolol tartrate 50 mg tablet 50 mg PO BID 07/06/25 07/06/25 07/05/25 History Exam Height,Weight and Vital Signs: Height 5 ft 2.5 in Weight 58.6 kg Last Vital Signs Temp 98.4 F 07/06/25 07:42 Pulse 95 07/06/25 07:42 Resp 18 07/06/25 07:42 BP 159/72 H 07/06/25 07:42 Pulse Ox 95 07/06/25 07:42 O2 Del Method Room Air 07/06/25 07:42 Pertinent Lab Results Pertinent Lab Results: Laboratory Tests 07/06/25 07/06/25 07/06/25 02:35 02:55 02:57 WBC 16.1 H RBC 4.87 Hgb 15.5 Hct 43.2 MCV 88.7 MCH 31.8 MCHC 35.9 H RDW 12.4 Plt Count 299 MPV 8.8 L Immature Gran % (Auto) 0.4 Neut % (Auto) 80.9 H Lymph % (Auto) 8.[address] [place] % (Auto) 9.8 Eos % (Auto) 0.0 Baso % (Auto) 0.2 Lymph # (Auto) 1.4 [place] # (Auto) 1.6 H Eos # (Auto) 0.0 Baso # (Auto) 0.0 Abs Immat Gran (auto) 0.07 H Absolute Neuts (auto) 13.0 H Absolute Nucleated RBC 0.000 Nucleated RBC % (auto) 0.0 Smear Tech's Comments VERIFIED Sodium 141 Potassium 3.4 D Chloride 109 H Carbon Dioxide 21 L Anion Gap 14 BUN 13 Creatinine 0.66 Estim Creat Clear Calc 66.3 Estimated GFR > 60 Random Glucose 125 H Calcium 8.6 D Total Bilirubin 1.1 H AST 19 ALT 15 Alkaline Phosphatase 66 Total Protein 6.4 L Albumin 4.1 Lipase 10 Urine Color Dark Yellow Urine Appearance Cloudy Urine pH 5.5 Ur Specific [place] 1.025 Urine Protein 100 (2+) H Urine Glucose (UA) Negative Urine Ketones 80 Urine Blood Large (3+) H Urine Nitrite Negative Ur Leukocyte Esterase Small (1+) H Urine RBC >20 H Urine WBC 21-50 H Ur Squamous Epith Cells >20 Urine Bacteria 2+ Hyaline Casts >20 Airway Mallampati Class: IV TM Dist: >3cm Neck ROM: Full Loose/Missing/Broken Teeth: No (upper crowns 6-10) Heart: RRR Lungs: CTAB Documented by User: Bailey Keller MD 07/06/25 10:54 COUNTS INCLUDE 234 BEDS AT THE [facility] Family History Family history of problems with anesthesia: No Surgical History History of Problems with Anesthesia: No Social History Social History Alcohol intake: current Alcohol intake frequency: a few times a week Alcohol type: wine Smoked in Last 30 Days: Yes Use of substances other than those prescribed or required for medical reasons: No Advance Directives: No Advance Directives Information Provided: No Meds Allergies Allergy/AdvReac Type Severity Reaction Status Date / Time No Known Allergies Allergy Unverified 07/06/25 02:20 Home Medications ?Medication ?Instructions ?Recorded ?Confirmed ?Last Taken ?Type levothyroxine 100 mcg tablet 100 mcg PO DAILY@0600 07/06/25 07/06/25 07/05/25 History lovastatin 20 mg tablet 20 mg PO DAILY 07/06/25 07/06/25 07/05/25 History metoprolol tartrate 50 mg tablet 50 mg PO BID 07/06/25 07/06/25 07/05/25 History Exam Airway Mallampati Class: III (top front teeth implants) Assessment and Plan Assessment Anesthesia Assessment: Anesthesia Plan Discussed and Chart Reviewed Final Anesthetic Review Family History of Problems with Anesthesia: No History of Problems with Anesthesia: No NPO: Yes ASA Class: II and Emergency Final Preanesthetic Review: No Changes in Pt Med Stat, Meds/Allgs Chart Reviewed and Consent Obtained/Reviewed Patient Risk: Low Procedure Risk: Low Anesthetic Plan Anesthetic Plan: GA Disposition: Standard PACU
--- NOTE | 2025-07-06 09:50 | PC.NURSE ---
Pt initially had decrease in pain with meds gv this morning; pt now reports return of pain, worse than before and diffusely throughout lower abdomen; no rigidity or distention noted; pt denies N/V; Dr Young paged and made aware; pt medicated again for pain; vss; will cont to monitor/tx per orders
--- NOTE | 2025-07-06 10:55 | PC.NURSE ---
IV access verified: #20 right wrist and #20 LAC clean dry intact. Patent, good blood return and flushes without difficulty.
--- NOTE | 2025-07-06 11:21 | MHC.CM.PN ---
PT REPORTS SHE LIVES WITH HER S/O AND IS INDEPENDENT SHE HAS NO DME OR SERVICES COPY OF HCP REQUESTED, SHE REPORTS HER S/O AND BROTHER ARE HER AGENTS PCP: MYLA HAN DCP: HOME VIA PRIVATE TRANSPORT
--- NOTE | 2025-07-06 11:56 | W.PM.OPN ---
Operative Note Operative Note Date of Service: 07/06/25 Narrative: Preoperative diagnosis: Acute appendicitis Postoperative diagnosis: Same Procedure: Laparoscopic appendectomy Surgeon: Don Bautista MD Lead Java Programmer: Tasha Dumont PA-C; Angel Echavarria MS-3 Anesthesia: General endotracheal Indications for procedure: 65-year-old female patient presenting with severe abdominal pain in the right lower quadrant found to have an elevated WBC and CT findings consistent with acute appendicitis Operative findings: Acutely inflamed appendix with gangrenous changes and evidence of perforation. Surrounding phlegmon involving the omentum. Specimen: Appendix Estimated blood loss: 2 mL Complications: None Procedure details: Patient was brought to the OR and placed in a supine position. After administering general anesthesia the patient's abdomen was prepped with ChloraPrep and draped in a sterile fashion. A surgical time-out was called and consent confirmed. Patient received preoperative antibiotics and Venodyne boots were in place. Local anesthesia consisting of 0.5% Sensorcaine with epinephrine was infiltrated in periumbilical region. A 5 mm incision was made below the umbilicus and carried down through subcutaneous tissue. A Veress needle was then inserted while elevating abdominal cavity with towel clips. After a positive drop test the abdomen was insufflated to a pressure of 15 mm of mercury. The Veress needle was removed and a 5 mm trocar inserted. The camera was then inserted in the abdomen explored. A 2nd 5 mm trocars placed in the lower midline. A 12 mm trocar was then placed in the left lower quadrant. The patient was then placed in a Trendelenburg position and rotated to the left. The appendix was identified in the right lower quadrant and brought up using blunt dissecting clamps. The mesentery of the appendix was then divided using the LigaSure. The appendiceal artery was cauterized and divided using the LigaSure. Dissection was continued down to the base of the cecum. An Endo-ROCCO stapler with a purple reload was then used to divide the appendix at the base with the cecum. The appendix was then placed in Endo-Catch bag and brought out through the left lower quadrant incision. The abdomen was then irrigated with saline solution and suctioned dry. Wounds were checked for hemostasis. CO2 was then evacuated from the abdominal cavity and all trocars removed. Fascia was closed in the left lower quadrant incision using a [id number] Polysorb suture. Skin was closed at all incisions using a subcuticular 4-0 Polysorb suture. Steri-Strips 2 x 2 gauze and Tegaderm were then applied. The patient tolerated the procedure well. Sponge, instrument, needle counts reported as correct. The patient was transferred to PACU in stable condition. Appendix with gangrenous tip:
[2025-07-06] MEDS: oxyCODONE HCl Immed Release 5 MG TABLET PO (18:29)
[2025-07-06] MEDS: 0.9 % Sodium Chloride Flush 3 ML SYRINGE IVFLUSH (20:04)
[2025-07-07] MEDS: oxyCODONE HCl Immed Release 5 MG TABLET PO ×2 (00:41→08:19)
[2025-07-07] MEDS: Dextrose 5 % and Lactated Ring 1,000 ML 125 ML IVCONT (02:20)
[2025-07-07 03:12] VITALS: BP 149/69; PULSE 86; RESP 15; TEMP 36; O2SAT 90
--- NOTE | 2025-07-07 06:56 | PM.PNGS ---
Subjective Subjective Date of Service: 07/07/25 <[facility] Filed: 07/07/25 07:08> 07/07/25 <Don Bautista MD - Last Filed: 07/07/25 08:12> Interval history: The patient is a 65 year old woman PMH IBS who is POD#1 s/p laproscopic appendectomy. Today, she is feeling sore but wants to get up and walking. She said the pain is 7/10 and diffuse across her abdomen when she moves, but the pain medication helps. She also reports some discomfort with urination. She has not had any BM or flatus. She states that her BM are already abnormal due to her IBS and her last BM was Sunday. She has tolerated some food without N/V. She denies chest pain, fever, chills, or shortness of breath. <[facility] Filed: 07/07/25 07:08> Physical Exam Vital Signs: Vital Signs: Last Vital Signs Temp 96.8 F 07/07/25 03:12 Pulse 86 07/07/25 03:12 Resp 15 07/07/25 03:12 BP 149/69 H 07/07/25 03:12 Pulse Ox 90 L 07/07/25 03:12 O2 Del Method Room Air 07/07/25 03:12 O2 Flow Rate 2 07/06/25 13:36 BMI result Body Mass Index 23.3 <[facility] Filed: 07/07/25 07:08> Const: General: cooperative, no acute distress, alert and awake <[facility] Filed: 07/07/25 07:08> Orientation/consciousness: patient oriented x3 <[facility] Filed: 07/07/25 07:08> Resp: Effort & Inspection: normal respiratory effort and able to speak in complete sentences <[facility] Filed: 07/07/25 07:08> Auscultation: clear to auscultation bilaterally, no crackles, no rales, no rhonchi and no wheezes <[facility] Filed: 07/07/25 07:08> Cardio: Jugular venous distension: no JVD <[facility] Filed: 07/07/25 07:08> Rate: regular rate <[facility] Last Filed: 07/07/25 07:08> Rhythm: regular rhythm <[facility] Last Filed: 07/07/25 07:08> GI: Palpation (GI): Soft to palpation, Tenderness to palpation present (GI) (diffuse tenderness), no guarding and not rigid <[facility] Last Filed: 07/07/25 07:08> Percussion: Yes normal to percussion <[facility] Filed: 07/07/25 07:08> Auscultation: Hypoactive bowel sounds present <[facility] Filed: 07/07/25 07:08> Skin: Other: [address] without discharge. Erythema around 1 wound dressing. <[facility] Last Filed: 07/07/25 07:08> Neuro: General: patient oriented x3 <[facility] Filed: 07/07/25 07:08> Objective Data Active Medications Calcium Carbonate (Calcium Carbonate 750 Mg Tab.Chew) 750 mg PO Q4H PRN PRN Reason: Heartburn Hydromorphone HCl (Hydromorphone Hcl 0.5 Mg/0.5 Ml Syringe) 0.5 mg IVPUSH Q3H PRN; Protocol PRN Reason: Pain, Severe (Pain Scale 7-10) Last Admin: 07/06/25 09:40 Dose: 0.5 mg Documented By: FER Acetaminophen (Ofirmev) 1,000 mg in 100 mls @ 400 mls/hr IV Q6H PRN PRN Reason: Pain, Mild (Pain Scale 1-3) Last Infusion: 07/06/25 10:29 Dose: Infused Documented By: FER Dextrose/Lactated Ringer's (D5lr) 1,000 mls @ 125 mls/hr IVCONT .Q8H [facility] Last Admin: 07/07/25 06:31 Dose: Not Given Documented By: CHRISTOPH Non-Admin Reason: previous bag running Piperacillin Sod/Tazobactam (Sod 3.375 gm/ Sodium Chloride) 50 mls @ 100 mls/hr IV Q6H [facility] Last Infusion: 07/07/25 06:18 Dose: Infused Documented By: CHRISTOPH Levothyroxine Sodium (Levothyroxine Sodium 100 Mcg Tablet) 100 mcg PO DAILY@0600 [facility] Last Admin: 07/07/25 05:47 Dose: 100 mcg Documented By: CHRISTOPH Magnesium Hydroxide (Milk Of Magnesia 30 Ml Oral.Susp) 30 ml PO DAILY PRN PRN Reason: Constipation Melatonin (Melatonin 3 Mg Tablet) 6 mg PO BEDTIME PRN PRN Reason: Insomnia Metoprolol Tartrate (Metoprolol Tartrate 50 Mg Tablet) 50 mg PO BID [facility]; Protocol Last Admin: 07/06/25 20:04 Dose: 50 mg Documented By: CHRISTOPH Naloxone HCl (Naloxone Hcl 0.4 Mg/Ml Vial) 0.04 mg IVPUSH Q5M PRN PRN Reason: Excessive sedation or RR < 8 Ondansetron HCl (Ondansetron Hcl 4 Mg/2 Ml Vial) 4 mg IVPUSH QID PRN PRN Reason: Nausea Last Admin: 07/06/25 10:07 Dose: 4 mg Documented By: FER Oxycodone HCl (Oxycodone Hcl Immed Release 5 Mg Tablet) 5 mg PO Q6H PRN PRN Reason: Pain, Moderate(Pain Scale 4-6) Last Admin: 07/07/25 00:41 Dose: 5 mg Documented By: CHRISTOPH Pravastatin Sodium (Pravastatin Sodium 20 Mg Tablet) 20 mg PO DAILY [facility] Sodium Chloride (0.9 % Sodium Chloride Flush 3 Ml Syringe) 3 ml IVFLUSH QSHIFT [facility] Last Admin: 07/06/25 20:04 Dose: 3 ml Documented By: CHRISTOPH <Angel Irizarryh - Last Filed: 07/07/25 07:08> Labs CBC & Chem 7: 07/06/25 02:35 07/06/25 02:55 <Angel Irizarryh - Last Filed: 07/07/25 07:08> Procedures Date of Service Date of Service: 07/07/25 <Angel Echavarria - Last Filed: 07/07/25 07:08> 07/07/25 <Don Bautista MD - Last Filed: 07/07/25 08:12> Progress Note: A&P Assessment and plan (1) Acute appendicitis: Status: Acute <Angel Irizarryh - Last Filed: 07/07/25 07:08> (2) S/P laparoscopic appendectomy: Status: Acute <[facility] Last Filed: 07/07/25 07:08> Assessment and Plan: The patient is a 65 year old woman PMH IBS who is POD#1 s/p laproscopic appendectomy who is in pain and has not had a BM yet. Physical exam is notable for diffuse tenderness of the abdomen and some erythema surrounding 1/3 of her dressings. Due to IV medication, high pain, and minimal ambulation, she may need to stay for another night, and dressings should be monitored for increasing erythema or signs of cellulitis. PLAN Continue to monitor for flatus/BM Continue with pain management Continue full diet Get patient ambulating Continue spirometry 10x per hour Continue Zosyn IV for UTI and other infection coverage <[facility] Last Filed: 07/07/25 07:08> The patient is a 65 year old woman PMH IBS who is POD#1 s/p laproscopic appendectomy who is in pain and has not had a BM yet. Physical exam is notable for diffuse tenderness of the abdomen and some erythema surrounding 1/3 of her dressings. Due to IV medication, high pain, and minimal ambulation, she may need to stay for another night, and dressings should be monitored for increasing erythema or signs of cellulitis. PLAN Continue to monitor for flatus/BM Continue with pain management Continue full diet Get patient ambulating Continue spirometry 10x per hour Continue Zosyn IV for UTI and other infection coverage Patient seen and examined an I agree with the above assessment and plan. Encouraged OOB and ambulation. Will need continued admission for antibiotics due to appendix perforation. <Don Bautista MD - Last Filed: 07/07/25 08:12> Time Spent With Patient Time: Total time managing care of this patient today ____ minutes. <[facility] Last Filed: 07/07/25 07:08> Quality Stroke Does the patient have a stroke diagnosis?: No <[facility] Filed: 07/07/25 07:08> VTE Prior VTE?: No <[facility] Last Filed: 07/07/25 07:08> VTE Risk Level:: Surgical - moderate <[facility] Last Filed: 07/07/25 07:08> VTE Device Contraindication: N/A - Device Ordered <Angel Echavarria - Last Filed: 07/07/25 07:08> VTE Drug Contraindication: Treatment Not Indicated <Angel Echavarria - Last Filed: 07/07/25 07:08>
[2025-07-07 07:27] VITALS: BP 163/80; PULSE 88; RESP 16; TEMP 36.2; O2SAT 92
--- NOTE | 2025-07-07 08:29 | HO.POSTANES ---
Post Anesthesia Evaluation Post Anesthesia Evaluation Date of Service: 07/07/25 Vital Signs: Vital Signs Temp Pulse Resp BP Pulse Ox O2 Del Method 07/07/25 07:27 97.1 F 88 16 163/80 H 92 Room Air 07/07/25 03:12 96.8 F 86 15 149/69 H 90 L Room Air 07/06/25 23:32 98.6 F 90 18 127/59 L 91 L Room Air Anesthesia: General Mental Status: Awake Pain Control: Satisfactory Nausea/Vomiting: None Hydration: Adequate Anesthesia-Related Issues: No Anes. Related Issues
[2025-07-07] MEDS: Dextrose 5 % and Lactated Ring 1,000 ML 80 ML IVCONT (11:55)
[2025-07-07 14:00] VITALS: BP 138/64; PULSE 77; RESP 16; TEMP 36.2
[2025-07-07 15:28] VITALS: BP 129/70; PULSE 75; RESP 19; TEMP 36.6; O2SAT 92
[2025-07-07] MEDS: 0.9 % Sodium Chloride Flush 3 ML SYRINGE IVFLUSH ×2 (17:27→19:43)
[2025-07-07 19:16] VITALS: BP 146/65; PULSE 91; RESP 16; TEMP 36.9; O2SAT 93
[2025-07-07 19:42] VITALS: BP 146/65; PULSE 91
[2025-07-08 03:07] VITALS: BP 165/77; PULSE 75; RESP 14; TEMP 36.2; O2SAT 93
[2025-07-08 05:37] VITALS: BP 172/78; PULSE 87; RESP 16; TEMP 36.1; O2SAT 93
[2025-07-08 06:41] LABS: MANUAL DIFF FLAG NO
[2025-07-08 06:49] LABS: Hematocrit 38.8 % (37.0-47.0); Hemoglobin 13.7 g/dl (12.0-16.0); Imm Gran Abs Auto 0.05 X10*3/uL (0.00-0.03); Imm Gran Pct Auto 0.5 % (0.0-0.4); Lymphocytes Absolute Auto 0.8 X10*3/uL (1.2-4.9); Mean Corpuscular HGB Conc 35.3 g/dl (31.0-35.0); Mean Corpuscular Hemoglobin 31.9 pg (27.0-33.0); Mean Corpuscular Volume 90.4 fL (80.0-98.0); NRBC Abs Auto 0.000 X10*3/uL (0.0-0.012); NRBC Pct Auto 0.0 /100WBC (0.0-0.2); Platelet Count 244 X10*3/uL (160-400); Red Blood Count 4.29 X10*6/uL (4.20-5.50); White Blood Count 11.0 X10*3/uL (4.8-10.8)
--- NOTE | 2025-07-08 06:50 | P.PNGS_ITS ---
Subjective Subjective Date of Service: 07/08/25 <[facility] Last Filed: 07/08/25 07:00> 07/08/25 <Rocky Dutta PA-C - Last Filed: 07/08/25 07:46> 07/08/25 <Don Bautista MD - Last Filed: 07/08/25 10:08> Interval history: The patient is a 65 year old woman PMH IBS who is POD#2 s/p laproscopic appendectomy. Topday she is feeling well and she is ready to go home. She says her abdomen is no longer painful, it just feels like pulling when she moves. She does not want any more opiate pain management and said Tylenol has helped more than the opiates. She has not had a BM or flatus. She no longer has discomfort with urination. She is on a full diet without nausea or vomiting. She denies chest pain, SOB, fever, or chills. <[facility] Filed: 07/08/25 07:00> Physical Exam 2 Vital Signs: Vital Signs: Last Vital Signs Temp 96.9 F 07/08/25 05:37 Pulse 87 07/08/25 05:37 Resp 16 07/08/25 05:37 BP 172/78 H 07/08/25 05:37 Pulse Ox 93 07/08/25 05:37 O2 Del Method Room Air 07/08/25 05:37 O2 Flow Rate 2 07/06/25 13:36 BMI result Body Mass Index 23.3 <[facility] Filed: 07/08/25 07:00> Const: General: cooperative, comfortable, no acute distress, alert and awake <[facility] Last Filed: 07/08/25 07:00> Orientation/consciousness: patient oriented x3 <[facility] Filed: 07/08/25 07:00> Resp: Effort & Inspection: normal respiratory effort and able to speak in complete sentences <[facility] Filed: 07/08/25 07:00> Auscultation: clear to auscultation bilaterally, no crackles, no rales, no rhonchi and no wheezes <[facility] Filed: 07/08/25 07:00> Cardio: Jugular venous distension: no JVD <[facility] Filed: 07/08/25 07:00> Rate: regular rate <[facility] Filed: 07/08/25 07:00> Rhythm: regular rhythm <[facility] Filed: 07/08/25 07:00> Heart sounds: no click, no gallops, Murmur heart sound present systolic at the right sternal border and no rubs <[facility] Filed: 07/08/25 07:00> GI: Palpation (GI): Soft to palpation and Tenderness to palpation present (GI) (diffuse tenderness to palpation) in the LLQ, in the RLQ, in the LUQ and in the RUQ <[facility] Filed: 07/08/25 07:00> Auscultation: Hypoactive bowel sounds present <[facility] Filed: 07/08/25 07:00> Skin: Other: 3x wound dressings without discharge or surrounding erythema <[facility] Filed: 07/08/25 07:00> Neuro: General: patient oriented x3 <[facility] Filed: 07/08/25 07:00> Objective Data Active Medications Calcium Carbonate (Calcium Carbonate 750 Mg Tab.Chew) 750 mg PO Q4H PRN PRN Reason: Heartburn Hydromorphone HCl (Hydromorphone Hcl 0.5 Mg/0.5 Ml Syringe) 0.5 mg IVPUSH Q3H PRN; Protocol PRN Reason: Pain, Severe (Pain Scale 7-10) Last Admin: 07/06/25 09:40 Dose: 0.5 mg Documented By: FER Acetaminophen ([facility]) 1,000 mg in 100 mls @ 400 mls/hr IV Q6H PRN PRN Reason: Pain, Mild (Pain Scale 1-3) Last Infusion: 07/07/25 19:51 Dose: Infused Documented By: CHRISTOPH Piperacillin Sod/Tazobactam (Sod 3.375 gm/ Sodium Chloride) 50 mls @ 100 mls/hr IV Q6H [facility] Last Admin: 07/08/25 05:18 Dose: Not Given Documented By: CHRISTOPH Non-Admin Reason: Patient Refused Levothyroxine Sodium (Levothyroxine Sodium 100 Mcg Tablet) 100 mcg PO DAILY@0600 [facility] Last Admin: 07/08/25 05:16 Dose: 100 mcg Documented By: CHRISTOPH Magnesium Hydroxide (Milk Of Magnesia 30 Ml Oral.Susp) 30 ml PO DAILY PRN PRN Reason: Constipation Melatonin (Melatonin 3 Mg Tablet) 6 mg PO BEDTIME PRN PRN Reason: Insomnia Metoprolol Tartrate (Metoprolol Tartrate 50 Mg Tablet) 50 mg PO BID [facility]; Protocol Last Admin: 07/07/25 19:42 Dose: 50 mg Documented By: CHRISTOPH Naloxone HCl (Naloxone Hcl 0.4 Mg/Ml Vial) 0.04 mg IVPUSH Q5M PRN PRN Reason: Excessive sedation or RR < 8 Ondansetron HCl (Ondansetron Hcl 4 Mg/2 Ml Vial) 4 mg IVPUSH QID PRN PRN Reason: Nausea Last Admin: 07/06/25 10:07 Dose: 4 mg Documented By: FER Oxycodone HCl (Oxycodone Hcl Immed Release 5 Mg Tablet) 5 mg PO Q6H PRN PRN Reason: Pain, Moderate(Pain Scale 4-6) Last Admin: 07/07/25 08:19 Dose: 5 mg Documented By: NATASHA Pravastatin Sodium (Pravastatin Sodium 20 Mg Tablet) 20 mg PO DAILY [facility] Last Admin: 07/07/25 08:19 Dose: 20 mg Documented By: NATASHA Sodium Chloride (0.9 % Sodium Chloride Flush 3 Ml Syringe) 3 ml IVFLUSH QSHIFT [facility] Last Admin: 07/07/25 19:43 Dose: 3 ml Documented By: CHRISTOPH <Angel Irizarryh - Last Filed: 07/08/25 07:00> Labs CBC & Chem 7: 07/08/25 05:53 07/06/25 02:55 <Angel Irizarryh - Last Filed: 07/08/25 07:00> Microbiology Microbiology Results: Microbiology 07/06/25 02:57 Urine Culture - Final Urine clean catch - Clean Catch Midstream <Angel Irizarryh - Last Filed: 07/08/25 07:00> Procedures Date of Service Date of Service: 07/08/25 <Angel Irizarryh - Last Filed: 07/08/25 07:00> 07/08/25 <Rocky Dutta PA-C - Last Filed: 07/08/25 07:46> 07/08/25 <Don Bautista MD - Last Filed: 07/08/25 10:08> Progress Note: A&P Assessment and plan (1) S/P laparoscopic appendectomy: Status: Acute <Angel Echavarria - Last Filed: 07/08/25 07:00> Assessment and Plan: The patient is a 65 year old woman PMH IBS who is POD#2 s/p laproscopic appendectomy who is clinically improving. She still has pain and has yet to have a BM/flatus but otherwise meets treatment goals. Her physical exam was notable for continued tenderness. She should be considered for discharge. PLAN Consider for discharge Continue ambulation Continue monitoring for BM/flatus Continue with pain management with Tylenol Switch to oral Abx and continue for 1-3 more days for infection coverage < Angel Echavarria - Last Filed: 07/08/25 07:00> The patient is a 65 year old woman PMH IBS who is POD#2 s/p laproscopic appendectomy who is clinically improving. She still has pain and has yet to have a BM/flatus but otherwise meets treatment goals. Her physical exam was notable for continued tenderness. She should be considered for discharge. PLAN Consider for discharge Continue ambulation Continue monitoring for BM/flatus Continue with pain management with Tylenol Switch to oral Abx and continue for 1-3 more days for infection coverage Patient is seen and examined independently. I agree with the above assessment and plan. Patient actually passed a small bowel movement this morning. Patient will have 70 course of Augmentin for continued antibiotic coverage. A.m. labs this morning show resolving leukocytosis.Overall doing well. Dressings removed. Steri-Strips remain in place. Incision sites appear clean dry and intact. Abdominal exam is soft and benign We will discharge home. Patient will have 70 course of Augmentin for continued antibiotic coverage < Rocky Dutta PA-C - Last Filed: 07/08/25 07:46> The patient is a 65 year old woman PMH IBS who is POD#2 s/p laproscopic appendectomy who is clinically improving. She still has pain and has yet to have a BM/flatus but otherwise meets treatment goals. Her physical exam was notable for continued tenderness. She should be considered for discharge. PLAN Consider for discharge Continue ambulation Continue monitoring for BM/flatus Continue with pain management with Tylenol Switch to oral Abx and continue for 1-3 more days for infection coverage Patient is seen and examined independently. I agree with the above assessment and plan. Patient actually passed a small bowel movement this morning. Patient will have 7 day course of Augmentin for continued antibiotic coverage. A.m. labs this morning show resolving leukocytosis.Overall doing well. Dressings removed. Steri-Strips remain in place. Incision sites appear clean dry and intact. Abdominal exam is soft and benign We will discharge home. Patient will have 7 day course of Augmentin for continued antibiotic coverage < Don Bautista MD - Last Filed: 07/08/25 10:08> Time Spent With Patient Time: Total time managing care of this patient today ____ minutes. <Angel Irizarryh - Last Filed: 07/08/25 07:00> Quality Stroke Does the patient have a stroke diagnosis?: No <Angel Irizarryh - Last Filed: 07/08/25 07:00> VTE Prior VTE?: No <Angel Irizarryh - Last Filed: 07/08/25 07:00> VTE Risk Level:: Surgical - moderate <Angel Irizarryh - Last Filed: 07/08/25 07:00> VTE Device Contraindication: N/A - Device Ordered <Angel Irizarryh - Last Filed: 07/08/25 07:00> VTE Drug Contraindication: Treatment Not Indicated <Angel Irizarryh - Last Filed: 07/08/25 07:00>
[2025-07-08 07:55] VITALS: BP 153/72; PULSE 88; RESP 16; TEMP 36.2; O2SAT 96
--- NOTE | 2025-07-08 08:32 | MHC.CM.PN ---
DP: PT HAS BEEN MEDICALLY CLEARED FOR DC HOME, NO SERVICES. S/O WILL TRANSPORT HOME.
--- NOTE | 2025-07-08 08:34 | PM.DS ---
DS: Providers Provider Date of Service: 07/08/25 Date of admission: 07/06/25 05:41 Date of discharge: 07/08/25 Primary care physician: Alverto Kennedy MD Admitting clinician: Don Bautista Attending physician on admission: Don Bautista Attending physician on discharge: Don Bautista DS: Diagnosis Discharge Diagnosis (1) S/P laparoscopic appendectomy: Status: Acute DS: Summary Hospital Course Hospital Course: Admission HPI: Lashonda Jaffe is a 65 year old female who began having vague abdominal pain in the center of the abdomen that began on sunday. This gradually increased in intensity on sunday, became located at the right lower quadrant and she began having nausea and vomiting. Became difficult for her to even walk straight due to pain. She has been unable to eat since sunday morning. She has not travelled or had known sick contacts. Denies fevers or chills at home. Intitally presenting with leukocytosis 16.1, CT showing concern for acute appendicitis, dilation of the appendix up to 1.3 cm, appendicolith at the base of the appendix, surrounding inflammatory changes. She was started on IVF, zosyn in the ED. Pain has not improved much since she has been at [facility], still located in [facility]. continued nausea, decreased appetite. Denies allergies. Daily medications include levothyroxine, metoprolol, lovastatin. Denies surgical history. Hospital course: Patient was brought to the OR later that morning due to worsening pain, deterioration. Laparoscopic appendectomy was performed, it was found intraoperatively that the appendix was perforated, which is likely the cause of her acute worsening prior to the procedure. She tolerated to procedure well and was transferred to the [facility] floor for continued management. Postop day 1 patient feeling much better, complaining of some incisional site pain. Had not eaten at this time but is hungry. Abdominal exam soft felt to with a benign size from incisional tenderness. Dressings clean and dry. She was ambulating, had good pain control. POD 2. Patient doing well felt ready to go home. Tolerating diet, had small bowel movement this morning. Denying nausea or vomiting. Continued good pain control. Dressings were removed incision is clear dry intact. Patient has been discharge. The time of discharge patient was in stable condition, abdominal exam soft and benign. She is to follow up one-week in the office. We will send for 7 days of Augmentin for continued antibiotic coverage Status at Discharge Functional status at discharge: independent ambulation Overall status at discharge: patient is progressing back to baseline Time Attestation Discharge Coordination Time (in mins): 30 Quality: Safe Use of Opioids Does Pt have an Active Cancer Diagnosis on the Problem List?: No Quality: Stroke Does the patient have a stroke diagnosis?: No Physical Exam Vital Signs: Vital Signs: Last Vital Signs Temp 97.1 F 07/08/25 07:55 Pulse 88 07/08/25 07:55 Resp 16 07/08/25 07:55 BP 153/72 H 07/08/25 07:55 Pulse Ox 96 07/08/25 07:55 O2 Del Method Room Air 07/08/25 07:55 O2 Flow Rate 2 07/06/25 13:36 BMI result Body Mass Index 23.3 Const: General: cooperative, comfortable, no acute distress, alert and awake Orientation/consciousness: patient oriented x3 Resp: Effort & Inspection: normal respiratory effort and able to speak in complete sentences Auscultation: clear to auscultation bilaterally, no crackles, no rales, no rhonchi and no wheezes Cardio: Jugular venous distension: no JVD Rate: regular rate Rhythm: regular rhythm Heart sounds: no click, no gallops, Murmur heart sound present systolic at the right sternal border and no rubs GI: Palpation (GI): Soft to palpation and Tenderness to palpation present (GI) (diffuse tenderness to palpation) in the LLQ, in the RLQ, in the LUQ and in the RUQ Auscultation: Hypoactive bowel sounds present Skin: Other: 3x wound dressings without discharge or surrounding erythema Neuro: General: patient oriented x3 DS: Data Data Completed and Pending Completed studies during hospitalization [Text1]: Pending at discharge 07/06/25 11:43 Surgical [PTH] Routine Labs on day of discharge: Laboratory Results - last 24 hr 07/08/25 05:53 WBC 11.0 H RBC 4.29 Hgb 13.7 Hct 38.8 MCV 90.4 MCH 31.9 MCHC 35.3 H RDW 12.4 Plt Count 244 MPV 9.3 L Immature Gran % (Auto) 0.5 H Neut % (Auto) 86.7 H Lymph % (Auto) 7.1 L [place] % (Auto) 3.7 Eos % (Auto) 1.7 Baso % (Auto) 0.3 Lymph # (Auto) 0.8 L [place] # (Auto) 0.4 Eos # (Auto) 0.2 Baso # (Auto) 0.0 Abs Immat Gran (auto) 0.05 H Absolute Neuts (auto) 9.6 H Absolute Nucleated RBC 0.000 Nucleated RBC % (auto) 0.0 Discharge Plan Discharge Anticipated Discharge Date/Time: 07/08/25 07:34 Patient Disposition: Home, Self-Care Discharge Diagnosis: acute appendicitis w/ perforation, s/p laparoscopic appendectomy Referrals: Alverto Kennedy MD [Primary Care Provider, Internal Medicine] - 1 Week Discharge Medications: New docusate sodium [Colace] 100 mg capsule 100 mg PO BID Qty: 30 0RF oxycodone 5 mg tablet 5 mg PO Q6H PRN (Reason: pain (scale score 7-10)) Qty: 16 0RF Rx Instructions: Partial Fill upon patient request. acetaminophen [Tylenol] 325 mg tablet 650 mg PO Q6H PRN (Reason: fever or pain) Qty: 30 0RF amoxicillin-pot clavulanate 875-125 mg tablet 1 tab PO BID Qty: 14 0RF Continued levothyroxine 100 mcg tablet 100 mcg PO DAILY@0600 metoprolol tartrate 50 mg tablet 50 mg PO BID lovastatin 20 mg tablet 20 mg PO DAILY Discharge Orders: Discharge Order (Routine); Ordered 07/08/25 Ordered By: Rocky Dutta Diet: Advance to usual diet Activity on Discharge: No heavy lifting Stand Alone Forms: Patient Portal Discharge page Print Language: Ghanaian Activity Restrictions/Additional Instructions: If your incision site is sore, you may apply ice to the area for short periods of time (no more than 20 minutes at a time, followed by 20 minutes off). You were prescribed oxycodone to assist with pain management as needed. You can additionally use OTC ibuprofen or acetaminophen as needed for pain. You can remove the dressings at home, they do not need to be redressed. Steri strips can remain in place and will likely fall on their own or in the shower. No heavy lifting >20 pounds No strenuous activity. Do not use creams, lotion, ointment on the incision sites You will follow up with Dr. Bautista in the office in 1 week, you can call the office to schedule the appointment ) Please reach out to the office or be seen at the emergency department if you develop: -Fever >101.5 -Increasing pain or swelling of the area -Increased bleeding from the incision site or the incision begins to separate -If you are concerned for incision site infection such as redness, warmth, discharge. Some yellow/pink tinged discharge is normal -You develop nausea or vomiting Care Plan Goals: return to baseline level of health Health Concerns: post op pain Plan of Treatment: pain control follow up in the office in 1 week Assessment: doing well
[2025-07-08] MEDS: 0.9 % Sodium Chloride Flush 3 ML SYRINGE IVFLUSH (08:38)
== END 2025-07-08 09:24 | disposition home or self-care (01) | DRG 233 ==
LOC: HO.ED 05:02 → HO.EDOVER 05:46 → HO.S3 13:40
PROVIDERS: Physician Assistant; Admitting Provider Surgery; Emergency Provider Emergency Medicine; PCP Family Medicine; Visit Provider Surgery
PROC: 0DTJ4ZZ Resection of Appendix, Percutaneous Endoscopic Approach (ICD-10-PCS; CPT 44970; principal; 2025-07-06 10:30)
DX: K35.33 Acute appendicitis with perforation, localized peritonitis, and gangrene, with abscess (principal); F17.210 Nicotine dependence, cigarettes, uncomplicated; Z71.6 Tobacco abuse counseling; Z79.899 Other long term (current) drug therapy
CPT/HCPCS: 36415; 74177; 80053; 81001; 83690; 85025; 87086; 88304; 99285; J0131; J0330; J0696; J1171; J2003; J2250; J2405; J2543; J2704; J3010; Q9967

== ENCOUNTER → 2025-07-06 02:20 | Outpatient (BNV) | payer OTHER, SELFPAY | PROVIDERS: Emergency Provider Emergency Medicine; PCP Family Medicine; Visit Provider Radiology Diagnostic Radiology | DX: K35.890 Other acute appendicitis without perforation or gangrene (principal) | CPT/HCPCS: 74177 ==

== ENCOUNTER → 2025-07-06 05:41 | Outpatient (BNV) | payer OTHER, SELFPAY | PROVIDERS: Admitting Provider Surgery; Emergency Provider Emergency Medicine; PCP Family Medicine | DX: K35.30 Acute appendicitis with localized peritonitis, without perforation or gangrene (principal); Z90.49 Acquired absence of other specified parts of digestive tract | CPT/HCPCS: 44970; 99024; 99223 ==

== ENCOUNTER 2025-07-13 13:12 | Outpatient (AMB) | payer OTHER, SELFPAY ==
--- OUTSIDE RECORDS SUMMARY | 2025-07-10 06:00 | XMS_ITS ---
Author Organization [facility] Address [address] [place] [address] Care Team Providers Care Crushing Foreman Name Role Phone Alverto Kennedy MD Primary Care Provider Alton Daniels Unavailable [phone] Encounters Encounter Location Date Provider Diagnosis [facility] [address] [place] [address] 07/10/2025 Alton Lynch Plan Of Treatment Next Appt Details Provider Name:Alton Lynch , 05/13/2026 08:30:00 AM, [address] [facility], [address], [address], Progress Notes * Lashonda SANTANA ADOB:1959 (65 yo F)Acc No.[id number]:07/10/2025 Progress Note Patient: Josias GONZALESOPALLashonda Provider: Heather Lynch DPM :1960 A ge:65 Y S ex:Female Date:07/10/2025 Address: [address] [id number] Pcp:Alverto Kennedy MD Subjective: * Chief Complaints: [...] 0 07/10/2025 Generated for Janae morrison/Barbara on: 07/13/2025 06:18 PM EDT
--- NOTE | 2025-07-13 13:13 | A.OFFVIS_ITS ---
Vital Signs 07/13/25 13:20 Weight 134 lb BP 156/68 H Blood Pressure Location Rt brachial Position Sitting Pulse 73 Intake Visit Reasons: s/p appendectomy lap Intake Note: Patient here s/p Laparoscopic appendectomy. Patient c/o: no concerns. Reports incisions healing well. No longer taking rx pain meds. Surgery: () 07-06-2025 Note: Steri strips removed without incident. No bleeding or redness noted. Doctor Of Radiology Required: No Accompanied by: Self / Same As Patient Allergies No Known Allergies Allergy (Unverified 07/13/25 13:20) HPI HPI s/p appendectomy lap: Details: States she is doing well. His only needed to take the 500 mg Tylenol once. Does have some pain with certain movements but overall feels well. She reports she had a bit of a decreased appetite with the 1st few days after discharge which led her to not be able take her antibiotics because she was not eating very much. But she has resumed her antibiotics starting Sunday and plans to complete the entire course as prescribed. Her appetite has improved. Bowel function remains soft and liquidy. She denies fevers at home denies any drainage from incision sites. She does state that she feels a little bloated still but has been passing gas. [facility] Medical History (Updated 07/06/25 @ 16:51 by Erica Slaughter RN) No known health problems No known health problems Surgical History (Updated 07/07/25 @ 08:12 by Don Bautista MD) S/P laparoscopic appendectomy (07/06/25) Social History Household Members: Spouse Housing: House Do you presently have visiting nurse or other home services: No Alcohol intake: current Alcohol intake frequency: a few times a week Alcohol type: wine Patient Tobacco Use Status: Current everyday Tobacco user Tobacco use type: Cigarette Cigarette Packs Per Day: 0.5 Cigarettes Per Day: 10.0 Years Smoked: 50 e-Cigarette/Vaping Use: Never Used Second Hand Smoke Exposure: No service: No Review of Systems Const All systems reviewed & are unremarkable except as noted in HPI and below Physical Exam Vital Signs: Last Vital Signs Pulse 73 07/13/25 13:20 BP 156/68 H 07/13/25 13:20 Const General: comfortable and no acute distress Orientation/consciousness: patient oriented x3 GI Other: Incision sites clean dry and intact. No surrounding erythema, no palpable fluid collection, no discharge noted Inspection: No distended Palpation (GI): Soft to palpation, Tenderness to palpation present (GI) (Mildly tender at incision sites) and no guarding Neuro General: patient oriented x3 Assessment & Plan Assessment & Plan (1) S/P laparoscopic appendectomy: Onset Date: 07/06/25 Code(s): Z90.49 - Acquired absence of other specified parts of digestive tract Category: Medical Plan 65-year-old female s/p laparoscopic appendectomy on 07/06/2025 returned to the office for routine follow up. Overall patient doing well experiencing appropriate postoperative pain that is controlled without medication. Appetite is returning to normal. Bowel function remains soft and liquidy, I reassured her that this is appropriate postoperatively given the antibiotics that she was given doing her admission and is continuing to take at home. I did stress the importance of continuing the complete course of antibiotics. She understands this and plans to do so. On exam her abdomen is soft and benign there was no distention noted. Incision sites are clean dry and intact no concern for infection at this time. We will continue with no heavy lifting for the next 3 weeks. She will follow up in 3 weeks for routine follow up. She may return so richie as needed with any concerns or questions Medications: Discontinued oxycodone Partial Fill upon patient request. Discontinued Reason: Patient Completed Course 5 mg PO Q6H PRN 16 tabs 0RF pain (scale score 7-10) amoxicillin-pot clavulanate 875-125 mg Discontinued Reason: Patient Completed Course 1 tab PO BID 14 tabs 0RF Coding Level of Care Code Global (64147) Diagnoses S/P laparoscopic appendectomy Z90.49
[2025-07-13 13:20] VITALS: BP 156/68; PULSE 73
--- OUTSIDE RECORDS SUMMARY | 2025-07-13 18:18 | XMS_ITS | Clinical Summary ---
Author Organization [facility] Address [address] [facility] [address] [place] [address] Phone Care Team Providers Care Skein Inspector Name Role Phone Pcp, Unknown Primary Care [...] 2009 OSTEOPOROSIS SCREENING INITI AL (ONE-TIME) 2024 INFLUENZA VACCINE (#1) 2025 09/29/2017 COVID-19 VACCINE (3 - 2024-2 6 season) 2025 12/01/2020, 11/03/2020 RSV VACCINE (1 - 1-dose 75+ series) [...] Jaffe Payer ID:Not on file Type:HMO Address: [place] [id number] O Member Subscriber Plan / Payer (Ef fective 2018-Present) Name:Lashonda Jaffe Relation to Subscriber:Self Name:Lashonda Jaffe Payer ID:Not on file Type:HMO Address: [place] [id number] O Care Teams Skein Inspector Relationship Specialty Start Date End Date Pcp, Unknown PCP - General 05/30/19 Additional Source Comments The information contained in this document represents components of the legal health record. It is not the complete legal health record.[facility]
--- OUTSIDE RECORDS SUMMARY | 2025-07-13 18:19 | XMS_ITS | Patient Health Record ---
Author Organization [facility] Address [address] [facility] [place] [address] Care Team Providers Care Stripe Matcher Name Role Phone Alverto Kennedy MD Primary Care Provider Alton Daniels Unavailable [phone] Allergies No Known Allergies Reason For Referral [...] W/U Status Risk Notes Problem Ingrowing nail (458238416) Ingrown nail (L60.0) Active confirmed Vital Signs Height 5ft 3in in 05/14/2025 Weight 136 lbs 05/14/2025 BMI 24.09 kg/m2 05/14/2025 Procedures Procedure Date Ordered Date Performed Result Body Sit e 72621-Xuohpcjz Plate 05/14/2025 N/A Encounters Encounter Location Date Provider Diagnosis [facility] [address] [address] 05/14/2025 Alton yLnch Ingrown nail L60.0 ; Pain in left [...] Treatment Pending Test Test Name Order Date 04463-Yemw Destruction, 1-14 03/13/2014 11690-Zambjdop Plate 10/13/2011 47973-Iojbtsxa Plate 03/13/2014 23939-Tyktvcsg Plate 05/05/2022 09876-Zqotjacp Plate 01/01/2024 12782-Goemmzyk Plate 05/14/2025 13784-Khkvvqkw Plate Each Additional 81555-Nmebrgkm Plate Each Additional 96578 I&D ABSCESS- SIMPLE,SINGLE 021 Next Appt Details Provider Name:Alton Lynch , 05/13/2026 08:30:00 AM, [address] [facility], [address], [place], [address], Insurance Providers Payer Name Payer Address Payer Phone Subscriber Number Group Number Insured Name Patient Relationship to Insured Coverage Start Date Coverage End Date [facility] [address] [place] [address] [id number] Lashonda Jaffe Self - patient is the insured Medical (General) History Medical History History ICD Code mumps measles chicken pox thyroid disorder stroke headaches/migraines broken bones Cholesterol Surgical History Surgery Date(Month/Year)
== END 2025-07-13 13:42 | disposition home or self-care (01) ==
LOC: HO.HGS 13:12
PROVIDERS: PCP Family Medicine
DX: Z90.49 Acquired absence of other specified parts of digestive tract (principal)
CPT/HCPCS: 99024

== ENCOUNTER 2025-09-12 07:53 | Outpatient (REF) | payer OTHER, SELFPAY ==
--- OUTSIDE RECORDS SUMMARY | 2025-07-10 05:00 | XMS_ITS ---
Author Organization [facility] Address [address] [place] [address] Care Team Providers Care Telephoto Engineer Name Role Phone Alverto Kennedy MD Primary Care Provider Alton Daniels Unavailable [phone] Encounters Encounter Location Date Provider Diagnosis [facility] [address] [place] [address] 07/10/2025 Alton Lynch Plan Of Treatment Next Appt Details Provider Name:Alton Lynch , 05/13/2026 08:30:00 AM, [address] [facility], [address], [address], Progress Notes * Lashonda SANTANA ADOB:1959 (65 yo F)Acc No.[id number]:07/10/2025 Progress Note Patient: Josias GONZALESOPALLashonda Provider: Heather Lynch DPM :1960 A ge:65 Y S ex:Female Date:07/10/2025 Address: [address] [id number] Pcp:Alverto Kennedy MD Subjective: * Chief Complaints: * * Medical History: Objective: * Vitals: Assessment: Plan: * Treatment: * Images: * The named appointment provid er may or may not be the originator of this progress note, and it is not deemed complete until electronically signed by the appointment provider. Sign off status: Pending * Provider: Heather Lynch DPM Date: 0 07/10/2025 Generated for Janae morrison/Barbara on: 1 11/12/2024 07:55 AM EST
--- OUTSIDE RECORDS SUMMARY | 2025-09-12 07:55 | XMS_ITS | Clinical Summary ---
Author Organization [facility] Address [address] [facility] [address] [place] [address] Phone Care Team Providers Care Light Armored Vehicle Officer Name Role Phone Pcp, Unknown Primary Care [...] on patient's age to complete this topic IPV VACCINES Aged Out No longer eligi ble based on patient's age to complete this topic MENINGOCOCCAL VACCINES (ACWY) Aged Out No longer eligible based on patient's age to complete this topic MENINGOCOCCAL VACCINES (B) Aged Out N o longer eligible based on patient's age to complete this topic [place] [id number] [facility] [address] [place] [place] [id number] [place], [place] [id number] [place] [id number] [facility] [address] [place] [id number] [facility] [address] [place] [id number] Care Teams Light Armored Vehicle Officer Relationship Specialty Start Date End Date Pcp, Unknown PCP - General 05/30/19 Additional Source Comments The information contained in this document represents components of the legal health record. It is not the complete legal health record.[facility]
--- OUTSIDE RECORDS SUMMARY | 2025-09-12 07:56 | XMS_ITS | Patient Health Record ---
Author Organization [facility] Address [address] [facility] [place] [address] Care Team Providers Care Special Crimes Investigator Name Role Phone Alverto Kennedy MD Primary Care Provider Alton Daniels Unavailable [phone] Allergies No Known Allergies Reason For Referral [...] W/U Status Risk Notes Problem Ingrowing nail (286225689) Ingrown nail (L60.0) Active confirmed Vital Signs Height 5ft 3in in 05/14/2025 Weight 136 lbs 05/14/2025 BMI 24.09 kg/m2 05/14/2025 Procedures Procedure Date Ordered Date Performed Result Body Sit e 03647-Xepqiuuc Plate 05/14/2025 N/A Encounters Encounter Location Date Provider Diagnosis [facility] [address] [address] 05/14/2025 Alton Lynch Ingrown nail L60.0 ; [...] Treatment Pending Test Test Name Order Date 91589-Cwwy Destruction, 1-14 03/13/2014 91568-Sxcfyaab Plate 10/13/2011 03726-Inspzfql Plate 03/13/2014 24227-Xeqrohan Plate 05/05/2022 65536-Jqvwxwgt Plate 01/01/2024 01760-Ogwbcrcj Plate 05/14/2025 85157-Uepgdzge Plate Each Additional 03583-Cndvmxyc Plate Each Additional 43011 I&D ABSCESS- SIMPLE,SINGLE 021 Next Appt Details Provider Name:Alton Lynch , 05/13/2026 08:30:00 AM, [address] [facility], [address], [place], [address], Insurance Providers Payer Name Payer Address Payer Phone Subscriber Number Group Number Insured Name Patient Relationship to Insured Coverage Start Date Coverage End Date [facility] [address] [place] [address] [phone] [id number] Lashonda Jaffe Self - patient is the insured Medical (General) History Medical History History ICD Code mumps measles chicken pox thyroid disorder stroke headaches/migraines broken bones Cholesterol Surgical History Surgery Date(Month/Year)
[2025-09-12 08:11] LABS: MANUAL DIFF FLAG NO
[2025-09-12 09:08] LABS: Hematocrit 43.9 % (37.0-47.0); Hemoglobin 14.6 g/dl (12.0-16.0); Imm Gran Abs Auto 0.01 X10*3/uL (0.00-0.03); Imm Gran Pct Auto 0.2 % (0.0-0.4); Lymphocytes Absolute Auto 1.5 X10*3/uL (1.2-4.9); Mean Corpuscular HGB Conc 33.3 g/dl (31.0-35.0); Mean Corpuscular Hemoglobin 30.8 pg (27.0-33.0); Mean Corpuscular Volume 92.6 fL (80.0-98.0); NRBC Abs Auto 0.000 X10*3/uL (0.0-0.012); NRBC Pct Auto 0.0 /100WBC (0.0-0.2); Platelet Count 299 X10*3/uL (160-400); Red Blood Count 4.74 X10*6/uL (4.20-5.50); White Blood Count 4.6 X10*3/uL (4.8-10.8)
[2025-09-12 09:42] LABS: Alanine Aminotransferase 11 U/L (0-31); Albumin Level 4.1 g/dL (3.5-5.0); Alkaline Phosphatase 64 U/L (39-117); Anion Gap 13 (12-20); Aspartate Amino Transferase 18 U/L (5-31); Blood Urea Nitrogen 12 mg/dL (9-16); Calcium 9.3 mg/dL (8.4-10.2); Carbon Dioxide 27 mmol/L (22-29); Chloride 107 mmol/L (96-108); Cholesterol 168 mg/dL (<200); Estimated Glomerular Filt Rate > 60; HDL Cholesterol 56 mg/dL (>40); Potassium 4.3 mmol/L (3.3-5.1); Sodium 143 mmol/L (135-145); Total Protein 6.4 g/dL (6.5-8.0); Triglycerides 60 mg/dL (<150)
[2025-09-12 10:31] LABS: Free T4 (Free Thyroxine) 1.18 ng/dL (0.71-1.85)
== END 2025-09-12 07:54 | disposition home or self-care (01) ==
LOC: HO.LAB 07:53
PROVIDERS: PCP Family Medicine; Visit Provider Family Medicine
DX: Z13.0 Encounter for screening for diseases of the blood and blood-forming organs and certain disorders involving the immune mechanism (principal); Z13.1 Encounter for screening for diabetes mellitus; E07.9 Disorder of thyroid, unspecified; E78.00 Pure hypercholesterolemia, unspecified; Z86.39 Personal history of other endocrine, nutritional and metabolic disease
CPT/HCPCS: 36415; 80053; 80061; 82306; 84439; 84443; 85025